=== PATIENT | male | born 1990 ===

== ENCOUNTER 2017-03-10 08:05 | Inpatient (IN) | payer OTHER ==
[~2017-03-10] VITALS: Ht 157.5 cm; Wt 63.5 kg
== END 2017-03-12 08:46 | disposition home or self-care (01) | DRG 804 ==
LOC: ER 08:05 → MEDJ 13:30 → SEC-K 13:30 → MEDJ 18:16
PROVIDERS: Specialist
PROC: BW21Y0Z Computerized Tomography (CT Scan) of Abdomen and Pelvis using Other Contrast, Unenhanced and Enhanced (ICD-10-PCS; 2017-03-10)
PROC: 07BJ0ZX Excision of Left Inguinal Lymphatic, Open Approach, Diagnostic (ICD-10-PCS; principal; 2017-03-11 08:45)
DX: D72.822 Plasmacytosis (principal); Z72.0 Tobacco use; R59.0 Localized enlarged lymph nodes